=== PATIENT | male | born 2000 | race Caucasian/White ===

== ENCOUNTER 2021-09-29 21:22 | Emergency (ER) | payer SELFPAY ==
[~2021-09-29] VITALS: Ht 175.2 cm; Wt 58.9 kg
[2021-09-29 22:00] LABS: BASOPHILS % (AUTO) 0 % (0-10); EOSINOPHILS % (AUTO) 0 % (0-10); HEMATOCRIT 45 % (40-54); HEMOGLOBIN 15.5 g/dL (13.3-17.7); LYMPHOCYTES # (AUTO) 1.8 10^3/uL (1.0-4.0); LYMPHOCYTES % (AUTO) 19 % (12-44); MEAN CORPUSCULAR HEMOGLOBIN 31 pg (25-34); MEAN CORPUSCULAR HGB CONC 35 g/dL (32-36); MEAN CORPUSCULAR VOLUME 89 fL (80-99); MEAN PLATELET VOLUME 10.1 fL (9.0-12.2); MONOCYTES # (AUTO) 0.7 10^3/uL (0.0-1.0); MONOCYTES % (AUTO) 7 % (0-12); NEUTROPHILS % (AUTO) 73 % (42-75); PLATELET COUNT 256 10^3/uL (130-400); WHITE BLOOD COUNT 9.6 10^3/uL (4.3-11.0)
--- NOTE | 2021-09-29 22:04 | ED Cough/URI ---
General Chief Complaint: Respiratory Problems Stated Complaint: SOB Source: patient Exam Limitations: no limitations History of Present Illness Date Seen by Provider: Sep 29, 2021 Time Seen by Provider: 22:02 Initial Comments To ER with shortness of breath since this afternoon at 4 PM. Sometimes he feels like he stops breathing and he then he becomes anxious. No fevers or chills or exposure to ill contacts. No nausea no vomiting Timing/Duration: this afternoon Severity/Quality: no cough Prior Episodes/Possible Cause: no prior episodes Associated Symptoms: denies symptoms Allergies and Home Medications Patient Home Medication List Home Medication List Reviewed: Yes Review of Systems Review of Systems Constitutional: see HPI EENTM: see HPI Respiratory: see HPI, short of breath Cardiovascular: no symptoms reported Genitourinary: no symptoms reported Musculoskeletal: no symptoms reported Skin: no symptoms reported Psychiatric/Neurological: No Symptoms Reported Hematologic/Lymphatic: No Symptoms Reported Immunological/Allergic: no symptoms reported Physical Exam Capillary Refill : Height: '" Weight: lbs. oz. kg; BMI Method: General Appearance: WD/WN, no apparent distress, other (Anxious appearing. Also appears to be under the influence of some substance. Makes poor eye contact, pacing around the room, does not sit still. Multiple sores on his face.) Eyes: Bilateral Eye Normal Inspection, Bilateral Eye PERRL, Bilateral Eye EOMI HEENT: PERRL/EOMI, normal ENT inspection Neck: non-tender, full range of motion Respiratory: no respiratory distress, no accessory muscle use Gastrointestinal: normal bowel sounds, non tender, soft Neurologic/Psychiatric: alert, normal mood/affect, oriented x 3 Skin: normal color, warm/dry His respiratory rate and effort is normal. His lungs are clear. His oxygen is 97% on room air. His heart rates around 100-110 sinus. Progress/Results/Core Measures Suspected Sepsis SIRS Temperature: Pulse: Respiratory Rate: Laboratory Tests 09/29/21 21:48: White Blood Count 9.6 Blood Pressure / Mean: Laboratory Tests 09/29/21 21:48: Creatinine 0.89, Platelet Count 256, Total Bilirubin 0.5 Results/Orders Lab Results Laboratory Tests Test 09/29/21 21:40 09/29/21 21:48 Range/Units SARS-CoV-2 RNA (RT-PCR) Not Detected Not Detecte White Blood Count 9.6 4.3-11.0 10^3/uL Red Blood Count 5.07 4.30-5.52 10^6/uL Hemoglobin 15.5 13.3-17.7 g/dL Hematocrit 45 40-54 % Mean Corpuscular Volume 89 80-99 fL Mean Corpuscular Hemoglobin 31 25-34 pg Mean Corpuscular Hemoglobin Concent 35 32-36 g/dL Red Cell Distribution Width 11.9 10.0-14.5 % Platelet Count 256 130-400 10^3/uL Mean Platelet Volume 10.1 9.0-12.2 fL Immature Granulocyte % (Auto) 0 % Neutrophils (%) (Auto) 73 42-75 % Lymphocytes (%) (Auto) 19 12-44 % Monocytes (%) (Auto) 7 0-12 % Eosinophils (%) (Auto) 0 0-10 % Basophils (%) (Auto) 0 0-10 % Neutrophils # (Auto) 7.0 1.8-7.8 10^3/uL Lymphocytes # (Auto) 1.8 1.0-4.0 10^3/uL Monocytes # (Auto) 0.7 0.0-1.0 10^3/uL Eosinophils # (Auto) 0.0 0.0-0.3 10^3/uL Basophils # (Auto) 0.0 0.0-0.1 10^3/uL Immature Granulocyte # (Auto) 0.0 0.0-0.1 10^3/uL Sodium Level 140 135-145 MMOL/L Potassium Level 4.0 3.6-5.0 MMOL/L Chloride Level 103 98-107 MMOL/L Carbon Dioxide Level 21 21-32 MMOL/L Anion Gap 16 H 5-14 MMOL/L Blood Urea Nitrogen 12 7-18 MG/DL Creatinine 0.89 0.60-1.30 MG/DL Estimat Glomerular Filtration Rate 108 BUN/Creatinine Ratio 13 Glucose Level 113 H 70-105 MG/DL Calcium Level 9.4 8.5-10.1 MG/DL Corrected Calcium 8.5-10.1 MG/DL Total Bilirubin 0.5 0.1-1.0 MG/DL Aspartate Amino Transf (AST/SGOT) 28 5-34 U/L Alanine Aminotransferase (ALT/SGPT) 19 0-55 U/L Alkaline Phosphatase 84 40-136 U/L Total Protein 7.7 6.4-8.2 GM/DL Albumin 4.6 H 3.2-4.5 GM/DL My Orders Orders - MARIA E ABDULLAHI APRN Covid 19 Inhouse Test (09/29/21 21:43) BNP (09/29/21 21:44) Cbc With Automated Diff (09/29/21 21:44) Comprehensive Metabolic Panel (09/29/21 21:44) Chest 1 View, Ap/Pa Only (09/29/21 21:44) Vital Signs/I&O Capillary Refill : Departure Communication (Admissions) He reports that he does feel anxious. I offered him some medication for his anxiety but he declines. Impression Primary Impression: Shortness of breath Disposition: 01 HOME, SELF-CARE Condition: Stable Departure-Patient Inst. Decision time for Depature: 22:10 Referrals: NO,LOCAL PHYSICIAN (PCP/Family) Primary Care Physician Patient Instructions: Shortness of Breath, Adult ED MARIA E ABDULLAHI APRN Sep 29, 2021 22:04
[2021-09-29 22:06] LABS: ALBUMIN 4.6 GM/DL (3.2-4.5)
[2021-09-29 22:07] LABS: CHLORIDE 103 MMOL/L (98-107); SODIUM 140 MMOL/L (135-145)
[2021-09-29 22:08] LABS: CALCIUM 9.4 MG/DL (8.5-10.1)
[2021-09-29 22:09] LABS: GLUCOSE 113 MG/DL (70-105); TOTAL PROTEIN 7.7 GM/DL (6.4-8.2)
[2021-09-29 22:10] LABS: CARBON DIOXIDE 21 MMOL/L (21-32)
[2021-09-29 22:11] LABS: BILIRUBIN,TOTAL 0.5 MG/DL (0.1-1.0)
[2021-09-29 22:12] LABS: ALKALINE PHOSPHATASE 84 U/L (40-136)
[2021-09-29 22:13] LABS: CREATININE SERUM 0.89 MG/DL (0.60-1.30); GFR ESTIMATED 108
--- NOTE | 2021-09-29 22:13 | Diagnostic Imaging Report ---
EXAM: CHEST 1 VIEW, AP/PA ONLY INDICATION: Cough. Chest pain and anxiety. COMPARISON: None. FINDINGS: Normal heart size and central pulmonary vascularity. No focal pulmonary opacity. No pleural effusion or pneumothorax. No acute osseous findings. IMPRESSION: No acute cardiopulmonary findings. Dictated by: Dictated on workstation # [id number]
[2021-09-29 22:14] LABS: BUN/CREATININE RATIO 13
[2021-09-29 22:16] LABS: ALANINE AMINOTRANSFERASE 19 U/L (0-55)
[2021-09-29 22:32] VITALS: BP 127/65
== END 2021-09-29 22:34 | disposition home or self-care (01) ==
LOC: ER 21:24
DX: R06.02 Shortness of breath (principal); Z20.822 Contact with and (suspected) exposure to COVID-19
CPT/HCPCS: 36415; 71045; 80053; 83880; 85025; 87636

== ENCOUNTER 2021-10-10 20:03 | Emergency (ER) | payer SELFPAY ==
[~2021-10-10] VITALS: Ht 180 cm; Wt 63.5 kg
[2021-10-10 20:24] LABS: BASOPHILS # (AUTO) 0.1 10^3/uL (0.0-0.1); BASOPHILS % (AUTO) 1 % (0-10); BILIRUBIN,URINE NEGATIVE (NEGATIVE); CLARITY,URINE CLEAR; COLOR,URINE YELLOW; EOSINOPHILS # (AUTO) 0.2 10^3/uL (0.0-0.3); EOSINOPHILS % (AUTO) 3 % (0-10); GLUCOSE, URINE (UA) NEGATIVE (NEGATIVE); HEMATOCRIT 48 % (40-54); HEMOGLOBIN 16.4 g/dL (13.3-17.7); KETONES,URINE NEGATIVE (NEGATIVE); LEUKOCYTE ESTERASE ,URINE NEGATIVE (NEGATIVE); LYMPHOCYTES # (AUTO) 2.7 10^3/uL (1.0-4.0); LYMPHOCYTES % (AUTO) 41 % (12-44); MEAN CORPUSCULAR HEMOGLOBIN 31 pg (25-34); MEAN CORPUSCULAR HGB CONC 35 g/dL (32-36); MEAN CORPUSCULAR VOLUME 90 fL (80-99); MEAN PLATELET VOLUME 9.9 fL (9.0-12.2); MONOCYTES # (AUTO) 0.5 10^3/uL (0.0-1.0); MONOCYTES % (AUTO) 8 % (0-12); NEUTROPHILS % (AUTO) 47 % (42-75); NITRITE,URINE NEGATIVE (NEGATIVE); PLATELET COUNT 247 10^3/uL (130-400); PROTEIN,URINE TRACE (NEGATIVE); WHITE BLOOD COUNT 6.4 10^3/uL (4.3-11.0)
--- NOTE | 2021-10-10 20:24 | ED Psychosocial ---
General Chief Complaint: Psych/Social Disorder Stated Complaint: SUICIDAL IDEATION Source: patient, EMS Exam Limitations: no limitations (MARIA E ABDULLAHI APRN) History of Present Illness Date Seen by Provider: Oct 10, 2021 Time Seen by Provider: 20:20 Initial Comments To ER by EMS with reports of suicidal thoughts. He does not have a particular plan. Has been drinking a lot of fireball today he states. He states that he is not from here but is here visiting family for Thanksgiving and he became upset when he realized one of his good friends from [place] just . He s tates that he was hospitalized about 2 weeks ago in [facility] and he took what he thought was to Percocet but it was "laced with fentanyl" and he "flatlined". He also has a history of bipolar with depression not currently on any medications. He does drink alcohol daily at least for the past 2 weeks. Timing/Duration: just prior to arrival Severity: moderate Associated Symptoms: suicidal ideation (MARIA E ABDULLAHI APRN) Allergies and Home Medications Allergies Coded Allergies: No Known Drug Allergies (Unverified , 10/10/21) Patient Home Medication List Home Medication List Reviewed: Yes (MARIA E ABDULLAHI APRN) Review of Systems Constitutional: see HPI EENTM: see HPI Respiratory: no symptoms reported Cardiovascular: no symptoms reported Genitourinary: no symptoms reported Musculoskeletal: no symptoms reported Skin: no symptoms reported Psychiatric/Neurological: See HPI, Depressed, Emotional Problems (MARIA E ABDULLAHI APRN) Physical Exam Vital Signs - First Documented 10/10/21 20:05 Temp 36.7 Pulse 80 Resp 20 B/P (MAP) 130/97 (108) Pulse Ox 98 O2 Delivery Room Air (SATISH ROJO DO) Capillary Refill : (MARIA E ABDULLAHI APRN) Height, Weight, BMI Height: '" Weight: lbs. oz. kg; 19.00 BMI Method: General Appearance: WD/WN, no apparent distress, thin, other (Alert and oriented, cooperative,) HEENT: PERRL/EOMI, normal ENT inspection Neck: non-tender, full range of motion Respiratory: no respiratory distress, no accessory muscle use Gastrointestinal: normal bowel sounds, non tender Extremities: normal range of motion, non-tender Neurologic/Psychiatric: alert, normal mood/affect, oriented x 3 Thoughts/Hallucinations: normal thought pattern, no apparent hallucination Skin: normal color, warm/dry (MARIA E ABDULLAHI APRN) Progress/Results/Core Measures Results/Orders Lab Results (SATISH ROJO DO) My Orders (SATISH ROJO DO) Vital Signs/I&O (SATISH ROJO DO) Progress Progress Note : Progress Note 2299--ASSUMED CARE OF PT AT END OF SHIFT. PT IS CALM AND COOPERATIVE AND RESTING QUIETLY. PT CONTINUES TO BE VOLUNTARY ADMIT FOR INPATIENT PSYCHIATRIC CARE, PT CONTINUES TO HAVE SUICIDAL THOUGHTS, BUT STILL DOES NOT HAVE A SPECIFIC PLAN. NO DETERIORATION IN PT'S CONDITION DURING ER STAY (SATISH ROJO DO) Initial ECG Impression Date: Oct 10, 2021 Initial ECG Impression Time: 20:28 Initial ECG Rate: 63 Initial ECG Rhythm: Normal Sinus (SATISH ROJO DO) Departure Communication (Admissions) 2144-discussed with Dr. Garcia here from hospitalist services, would like to see psych will take the patient. I spoke with [facility] they do have a bed they will review his information to see if they can accept. 2246-sleeping, remains pleasant cooperative and appreciative. His Sister Vanessa Worrell has called. I confirmed with him that it was okay to give her information. She states that she told him tonight that he needs to "get his shit together" because he is 21 she is 32 and has kids and he has been drinking heavily. He then left her house where he had been staying temporarily. She did ask for a phone call from us with any updates. Her phone number is [phone]. (MARIA E ABDULLAHI APRN) PT'S INFORMATION HAD BEEN FAXED TO [facility] AT 2144. 2334--RN CALLED [facility] FOR UPDATE AND THEY REPORT THEY HAVE NOT RECEIVED FAX OF PT'S INFORMATION. THIS WAS ALL REFAXED. 2344--RN CALLED [facility] AND VERIFIED THAT THEY RECEIVED ALL OF PT'S INFORMATION AND ARE REVIEWING IT NOW. 8--SPOKE WITH DR. ALLISON, PSYCHIATRIST [facility] TECHNICIAN. ACCEPTS PT FOR ADMIT/ TRANSFER. 0--CONTACTED [facility], FOR SECURE TRANSPORT. HE WILL BE ABLE TO TRANSPORT PT AT 0600. [facility] WAS UPDATED OF THIS BY RN. 0600--[facility] HERE FOR TRANSPORT. (SATISH ROJO DO) Impression Primary Impression: Suicidal ideations Additional Impressions: Alcohol abuse Marijuana use Disposition: 65 XFER TO PSYCH HOSP/UNIT Condition: Stable Transfer Transfer Reason: Exceeds level of care Transfer Facility: [facility] Method of Transfer: [facility] (SATISH ROJO DO) Departure-Patient Inst. Referrals: NO,LOCAL PHYSICIAN (PCP/Family) Primary Care Physician MARIA E ABDULLAIH APRN Oct 10, 2021 20:24 SATISH ROJO DO Oct 11, 2021 04:47
[2021-10-10 20:46] LABS: ALBUMIN 4.5 GM/DL (3.2-4.5); CHLORIDE 106 MMOL/L (98-107); POTASSIUM 3.9 MMOL/L (3.6-5.0); SODIUM 144 MMOL/L (135-145)
[2021-10-10 20:48] LABS: AMYLASE 112 U/L (25-125); CALCIUM 9.2 MG/DL (8.5-10.1)
[2021-10-10 20:49] LABS: GLUCOSE 93 MG/DL (70-105); TOTAL PROTEIN 7.4 GM/DL (6.4-8.2)
[2021-10-10 20:50] LABS: CARBON DIOXIDE 24 MMOL/L (21-32)
[2021-10-10 20:51] LABS: BILIRUBIN,TOTAL 0.3 MG/DL (0.1-1.0)
[2021-10-10 20:53] LABS: ALKALINE PHOSPHATASE 88 U/L (40-136); CREATININE SERUM 0.91 MG/DL (0.60-1.30); GFR ESTIMATED 105
[2021-10-10 20:54] LABS: ACETAMINOPHEN < 10 UG/ML (10-30); BUN/CREATININE RATIO 12
[2021-10-10 20:55] LABS: AMORPHOUS SEDIMENT,UR FEW AMOR URATES /LPF; BACTERIA,URINE TRACE /HPF; RBC,URINE RARE /HPF; SALICYLATE < 5.0 MG/DL (5.0-20.0)
[2021-10-10 20:56] LABS: ALANINE AMINOTRANSFERASE 35 U/L (0-55); MAGNESIUM 2.1 MG/DL (1.6-2.4)
[2021-10-10 20:57] LABS: AMPHETAMINE SCREEN, URINE NEGATIVE (NEGATIVE); BARBITURATE SCREEN URINE NEGATIVE (NEGATIVE); BENZODIAZEPINES SCREEN URINE NEGATIVE (NEGATIVE); CANNABINOID SCREEN, URINE POSITIVE (NEGATIVE); COCAINE SCREEN URINE NEGATIVE (NEGATIVE); LIPASE 118 U/L (8-78); METHADONE STAT NEGATIVE (NEGATIVE); METHAMPHETAMINE SCREEN URINE S NEGATIVE (NEGATIVE); OPIATE SCREEN URINE NEGATIVE (NEGATIVE); OXYCODONE STAT NEGATIVE (NEGATIVE); PROPOXYPHENE STAT NEGATIVE (NEGATIVE); TRICYCLIC ANTIDEPRESSANTS SCRE NEGATIVE (NEGATIVE)
[2021-10-10 21:17] LABS: TSH (THYROID ANALYZER) 0.81 UIU/ML (0.35-4.94)
[2021-10-11 06:03] VITALS: BP 111/82
== END 2021-10-11 06:03 ==
LOC: EDUNIT# 20:03 → ER 20:04
DX: R45.851 Suicidal ideations (principal); F10.10 Alcohol abuse, uncomplicated; F12.90 Cannabis use, unspecified, uncomplicated; Z20.822 Contact with and (suspected) exposure to COVID-19
CPT/HCPCS: 80053; 80306; 81000; 82150; 83690; 83735; 84443; 85025; 87636; 93005; 93041; 99285; G0480 ×3; 36415; 80320; 80329

== ENCOUNTER 2023-03-20 07:31 | Emergency (ER) | payer SELFPAY ==
[~2023-03-20] VITALS: Ht 180 cm; Wt 65.0 kg
[2023-03-20 08:16] LABS: BASOPHILS % (AUTO) 1 % (0-10); EOSINOPHILS # (AUTO) 0.1 10^3/uL (0.0-0.3); EOSINOPHILS % (AUTO) 2 % (0-10); HEMATOCRIT 42 % (40-54); HEMOGLOBIN 14.9 g/dL (13.3-17.7); LYMPHOCYTES # (AUTO) 1.5 10^3/uL (1.0-4.0); LYMPHOCYTES % (AUTO) 24 % (12-44); MEAN CORPUSCULAR HEMOGLOBIN 32 pg (25-34); MEAN CORPUSCULAR HGB CONC 35 g/dL (32-36); MEAN CORPUSCULAR VOLUME 89 fL (80-99); MEAN PLATELET VOLUME 9.9 fL (9.0-12.2); MONOCYTES # (AUTO) 0.7 10^3/uL (0.0-1.0); MONOCYTES % (AUTO) 11 % (0-12); NEUTROPHILS % (AUTO) 63 % (42-75); PLATELET COUNT 253 10^3/uL (130-400); WHITE BLOOD COUNT 6.4 10^3/uL (4.3-11.0)
[2023-03-20 08:31] LABS: CHLORIDE 109 MMOL/L (98-107); POTASSIUM 3.9 MMOL/L (3.6-5.0)
[2023-03-20 08:32] LABS: SODIUM 141 MMOL/L (135-145)
[2023-03-20 08:33] LABS: CALCIUM 9.1 MG/DL (8.5-10.1)
[2023-03-20 08:34] LABS: GLUCOSE 110 MG/DL (70-105)
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
[2023-03-20 08:35] LABS: CARBON DIOXIDE 21 MMOL/L (21-32)
[2023-03-20 08:36] LABS: BILIRUBIN,TOTAL 0.4 MG/DL (0.1-1.0)
[2023-03-20 08:38] LABS: ALKALINE PHOSPHATASE 70 U/L (40-136); CREATININE SERUM 0.79 MG/DL (0.60-1.30); GFR ESTIMATED 128
[2023-03-20 08:39] LABS: BUN/CREATININE RATIO 14
[2023-03-20 08:41] LABS: ALANINE AMINOTRANSFERASE 15 U/L (0-55); SALICYLATE < 5.0 MG/DL (5.0-20.0)
[2023-03-20 08:49] LABS: ACETAMINOPHEN < 10 UG/ML (10-30)
[2023-03-20 09:44] LABS: BILIRUBIN,URINE NEGATIVE (NEGATIVE); CLARITY,URINE SL CLOUDY; COLOR,URINE YELLOW; GLUCOSE, URINE (UA) NEGATIVE (NEGATIVE); KETONES,URINE NEGATIVE (NEGATIVE); LEUKOCYTE ESTERASE ,URINE NEGATIVE (NEGATIVE); NITRITE,URINE NEGATIVE (NEGATIVE); PH,URINE 7.5 (5-9); PROTEIN,URINE NEGATIVE (NEGATIVE)
[2023-03-20 09:47] LABS: BACTERIA,URINE MODERATE /HPF; SQUAMOUS EPITHELIAL CELL,UR RARE /HPF; WBC,URINE RARE /HPF
[2023-03-20 09:48] LABS: AMORPHOUS SEDIMENT,UR FEW AMOR PHOSPHATE /LPF
[2023-03-20 10:02] LABS: AMPHETAMINE SCREEN, URINE POSITIVE (NEGATIVE); BARBITURATE SCREEN URINE NEGATIVE (NEGATIVE); BENZODIAZEPINES SCREEN URINE NEGATIVE (NEGATIVE); CANNABINOID SCREEN, URINE NEGATIVE (NEGATIVE); COCAINE SCREEN URINE NEGATIVE (NEGATIVE); METHADONE STAT NEGATIVE (NEGATIVE); OPIATE SCREEN URINE NEGATIVE (NEGATIVE); OXYCODONE STAT NEGATIVE (NEGATIVE); PROPOXYPHENE STAT NEGATIVE (NEGATIVE); TRICYCLIC ANTIDEPRESSANTS SCRE NEGATIVE (NEGATIVE)
[2023-03-21 12:30] VITALS: BP 105/77
== END 2023-03-21 12:30 ==
LOC: EDUNIT# 07:31 → ER 07:34 → EEVIPCON 07:34 → ER 03-21 12:30
DX: R45.851 Suicidal ideations (principal); F22 Delusional disorders; F19.10 Other psychoactive substance abuse, uncomplicated; F17.210 Nicotine dependence, cigarettes, uncomplicated; Z20.822 Contact with and (suspected) exposure to COVID-19
CPT/HCPCS: 80053; 80306; 81000; 84443; 85025; 87088; 87636; 93005; 99284; G0480 ×3; 36415; 80320; 80329